=== PATIENT | female | born 1945 | race Caucasian/White ===

== ENCOUNTER → 2023-12-16 16:18 | Outpatient (REF) | payer MEDICARE, SELFPAY | LOC: RAD 16:18 | PROVIDERS: ATTENDING PHYSICIAN Family Medicine | DX: M25.511 Pain in right shoulder (principal) | CPT/HCPCS: 73030 ==

== ENCOUNTER → 2023-12-24 13:42 | Outpatient (REF) | payer MEDICARE, SELFPAY | LOC: MRI 3T 13:42 | PROVIDERS: ATTENDING PHYSICIAN Physical Medicine & Rehabilitation; FAMILY PHYSICIAN Family Medicine | DX: M54.59 Other low back pain (principal); M51.36 Other intervertebral disc degeneration, lumbar region; M47.816 Spondylosis without myelopathy or radiculopathy, lumbar region; M48.062 Spinal stenosis, lumbar region with neurogenic claudication | CPT/HCPCS: 72148 ==

== ENCOUNTER → 2024-04-06 11:23 | Outpatient (REF) | payer MEDICARE, SELFPAY | LOC: RAD 11:23 | PROVIDERS: ATTENDING PHYSICIAN Family Medicine | DX: M16.11 Unilateral primary osteoarthritis, right hip (principal); G89.29 Other chronic pain; M54.50 Low back pain, unspecified | CPT/HCPCS: 73523 ==

== ENCOUNTER → 2024-06-15 14:09 | Outpatient (REF) | payer MEDICARE, SELFPAY | LOC: RCS 14:09 | PROVIDERS: ATTENDING PHYSICIAN Physical Medicine & Rehabilitation; FAMILY PHYSICIAN Family Medicine | DX: Z01.818 Encounter for other preprocedural examination (principal) | CPT/HCPCS: 93005 ==

== ENCOUNTER → 2024-12-27 13:58 | Outpatient (REF) | payer MEDICARE, SELFPAY | LOC: RAD 13:58 | PROVIDERS: ATTENDING PHYSICIAN Family Medicine | DX: N28.1 Cyst of kidney, acquired (principal) | CPT/HCPCS: 76775 ==

== ENCOUNTER → 2025-04-10 07:57 | Outpatient (REF) | payer MEDICARE, SELFPAY | LOC: PAVMRI 07:57 | PROVIDERS: ATTENDING PHYSICIAN Psychiatry & Neurology Neurology; FAMILY PHYSICIAN Family Medicine | DX: M46.1 Sacroiliitis, not elsewhere classified (principal) | CPT/HCPCS: 72195 ==